=== PATIENT | male | born 1960 | race Two or more races ===

== ENCOUNTER → 2023-05-25 | Day surgery (SDC) | payer OTHER ==
[~2023-05-25] MED LIST: CLONOPIN 1MG; LOSARTAN 20 MG; NEURONTIN300 MG PO; PERCOCET 5-3251 EACH PO; PERCOGESIC 3251 EACH PO
== END | disposition home or self-care (01) ==
LOC: ADM 05-24 09:15 → CIR.AMB 06:47
PROVIDERS: ATTEND Surgery
DX: C18.7 Malignant neoplasm of sigmoid colon (principal); Z20.822 Contact with and (suspected) exposure to COVID-19; I10 Essential (primary) hypertension